=== PATIENT | female | born 1955 | race Hispanic/Latino ===

== ENCOUNTER → 2022-05-01 | Day surgery (SDC) | payer OTHER ==
[~2022-05-01] MED LIST: AMBIEN10 MG PO; ATORVASTATIN CA20 MG PO; CELEBREX200 MG PO; FLOMAX0.4 MG PO; HAIR, SKIN & N1 EACH PO; JANUMET 50-1,01 EACH PO; LEVOTHYROXINE50 MCG PO; LIDOCAINE HCL 2% LOCAL INJ 5 ML SDV VIAL INJ ONE; MEDROL4 MG PO; METOPROLOL SUCC25 MG PO; OXYCODONE HCL20 M1 PO; PROPOFOL IV EMULSION 10 MG/ML 20 ML VIAL ONE; PROTONIX20 MG PO; SYNTHROID88 MCG PO; TYLENOL ARTHRITIS PO; VESICARE5 MG PO; VITAMIN B122500 MCG PO; VITAMIN D3 MA125 MCG PO
[2022-05-01 08:40] VITALS: BP 129/57
== END | disposition home or self-care (01) ==
LOC: OR 06:20
PROVIDERS: ATTEND Internal Medicine Gastroenterology
DX: D50.9 Iron deficiency anemia, unspecified (principal); D12.0 Benign neoplasm of cecum; K31.7 Polyp of stomach and duodenum; K29.50 Unspecified chronic gastritis without bleeding; R13.10 Dysphagia, unspecified; K21.9 Gastro-esophageal reflux disease without esophagitis; K44.9 Diaphragmatic hernia without obstruction or gangrene; Z71.3 Dietary counseling and surveillance; E11.9 Type 2 diabetes mellitus without complications; I10 Essential (primary) hypertension; E66.9 Obesity, unspecified; M06.9 Rheumatoid arthritis, unspecified; M19.90 Unspecified osteoarthritis, unspecified site; M79.7 Fibromyalgia; R53.83 Other fatigue; R06.02 Shortness of breath; R55 Syncope and collapse; E03.9 Hypothyroidism, unspecified; N39.0 Urinary tract infection, site not specified; Z88.6 Allergy status to analgesic agent; Z01.812 Encounter for preprocedural laboratory examination; Z20.822 Contact with and (suspected) exposure to COVID-19; Z79.84 Long term (current) use of oral hypoglycemic drugs; Z79.899 Other long term (current) drug therapy; Z68.32 Body mass index [BMI] 32.0-32.9, adult; Z86.19 Personal history of other infectious and parasitic diseases; Z95.818 Presence of other cardiac implants and grafts; Z87.891 Personal history of nicotine dependence
CPT/HCPCS: 0223U; 36415; 43239; 45384; 82948; 88304; 88305; 88312; 88342; J2001